=== PATIENT | male | born 1995 | race Two or more races ===

== ENCOUNTER 2024-05-14 08:08 | Emergency (ER) | payer OTHER ==
[~2024-05-14] VITALS: Ht 167.6 cm; Wt 96.2 kg
[2024-05-14 09:18] VITALS: BP 142/98; PULSE 100; RESP 16; TEMP 98.2; O2SAT 97
--- NOTE | 2024-05-14 10:36 | DVH ---
XY L HAND 3V XRAY, INDICATION: r/o fracture and FB. Work related injury TECHNICAL DATA: Frontal, oblique and lateral views were obtained of the left hand. COMPARISON: None FINDINGS: No fracture is identified. Joint spaces are maintained. Alignment is anatomic. Soft tissues are withi n normal limits. IMPRESSION: No acute fracture or dislocation of the left hand.
[2024-05-14] MEDS ORDERED: ACET500T58 PO (10:48)
[2024-05-14] MEDS ORDERED: CEPH500C PO (10:48)
--- NOTE | 2024-05-14 10:48 | ED.PDOC ---
History of Present Illness(SKN HPI Comments This is a pleasant 29-year-old male who is right-hand dominant that presents with a chief complaint of left upper extremity hand pain S/P work-related injury Patient reports he accident stopped his left palm with a gun nail the patient was quickly able to remove the foreign body nail from his hand but complains of pain to the palm in his concerned about a possible fracture The pain is currently rated as mild to moderate Last tetanus shot two years ago Denies numbness tingling to the affected extremity Denies fever chills nausea vomiting diarrhea Chief Complaint: Puncture Wound Time Seen by MD: 08:32 History of Present Illness: Nurses Notes, Medications, Allergies Allergies: Coded Allergies: NO KNOWN ALLERGIES (Unverified , 05/14/24) Information Source: Patient Mode of Arrival: Ambulatory All Other Systems: Reviewed and Negative (Per HPI) Physical Exam General Appearance: No Apparent Distress, Normal HEENT: Normal ENT Inspection, Pharynx Normal, TMs Normal Neck: Full Range of Motion, Non-Tender, Normal, Normal Inspection Respiratory: Chest Non-Tender, Lungs Clear, No Accessory Muscle Use, No Respiratory Distress, Normal Breath Sounds Cardiovascular: No Edema, No JVD, No Murmur, No Gallop, Normal Peripheral Pulses, Regular Rate/Rhythm Breast Exam: Deferred Gastrointestinal: No Organomegaly, Non Tender, No Pulsatile Mass, Normal Bowel Sounds, Soft Genitalia: Deferred Pelvic: Deferred Rectal: Deferred Extremities: No calf tenderness, Normal capillary refill, Normal inspection, Normal range of motion, Non-tender, No pedal edema Musculoskeletal : Location: Left Extremity Location: Hand (Puncture wound to the left hand. Hemostasis. No foreign body appreciated. 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 Was a procedure done?: No Differential Diagnosis (INTG) Differential Diagnosis: Other X-Ray, Labs, Meds, VS Vital Signs Date Time Temp Pulse Resp B/P (MAP) Pulse Ox O2 Delivery O2 Flow Rate FiO2 05/14/24 09:18 98.2 100 16 142/98 (113) 97 98.2 05/14/24 09:18 100 16 97 Room Air 05/14/24 08:23 98.2 100 16 142/98 (684) 97 98.2 PATIENT: SANA CUMMINST: [id number]: [id number] : 1995 LOC: ER ROOM / BED: / AGE / SEX: 29 / M ADM STATUS: REG ER SERVICE 3 ORDERING PHYSICIAN: PRASAD JOHNSON NP PROCEDURE(s): LHAN - L HAND 3V XRAY REASON: r/o fracture and FB. Work related injury ORDER NUMBER(s): [id number], ACCESSION NUMBER(s): [id number] XY L HAND 3V XRAY, INDICATION: r/o fracture and FB. Work related injury TECHNICAL DATA: Frontal, oblique and lateral views were obtained of the left hand. COMPARISON: None FINDINGS: No fracture is identified. Joint spaces are maintained. Alignment is anatomic. Soft tissues are within normal limits. IMPRESSION: No acute fracture or dislocation of the left hand. ATED BY: NATO LYNCH MD DICTATED DATE/TIME: 05/14/24 103 SIGNED BY: NATO LYNCH MD SIGNED DATE/TIME: 05/14/24 103 CC: X-Ray, Labs, Meds, VS Comment No acute fracture or dislocation of the left hand. No signs of a retained foreign body. Distal neuro sensation intact. Full ROM. Tetanus is updated based on show decision-making patient agreed to empiric treatment and advised to follow up with PCP Time of 1ST Reevaluation: 10:46 Reevaluation 1ST: Improved Patient Education/Counseling: Diagnosis, Treatment Family Education/Counseling: Diagnosis, Treatment Departure 1 Departure Time of Disposition: 10:47 Impression: Primary Impression: Hand injury Qualified Codes: S69.92XA - Unspecified injury of left wrist, hand and finger(s), initial encounter Disposition: 01 HOME / SELF CARE / HOMELESS Condition: Stable e-Prescriptions Acetaminophen (Acetaminophen) 500 Mg Tab 500 MG PO Q6HP PRN for 10 Days, #40 TAB 0 Refills Prov: PRASAD JOHNSON ASSISTANT PROFESSOR NURSE EDUCATION 05/14/24 Cephalexin Monohydrate (Cephalexin) 500 Mg Cap 1 CAP PO QID for 7 Days, #28 CAP 0 Refills Prov: PRASAD JOHNSON NP 05/14/24 Discharged With: Self Critical Care Note Critical Care Time?: No Stability Stability form required: No Heart Score Heart Score: Heart Score Response (Comments) Value History N/A 0 EKG N/A 0 Age N/A 0 Risk Factors N/A 0 Troponin N/A 0 Total 0 PRASAD JOHNSON NP May 14, 2024 10:48
== END 2024-05-14 11:12 | disposition home or self-care (01) ==
LOC: ER 08:08
DX: S69.92XA Unspecified injury of left wrist, hand and finger(s), initial encounter (principal); W29.4XXA Contact with nail gun, initial encounter; Y93.89 Activity, other specified; Y92.89 Other specified places as the place of occurrence of the external cause; Y99.8 Other external cause status
CPT/HCPCS: 73130